=== PATIENT | female | born 1985 | race Caucasian/White ===

== ENCOUNTER 2017-09-02 20:28 | Inpatient (IN) ==
[2017-09-02] MEDS ORDERED: STADOL IV PRN ×2 (20:36)
[2017-09-02] MEDS ORDERED: ZOFRAN IV PRN (20:36)
[2017-09-02] MEDS ORDERED: BRETHINE SUBQ PRN (20:36)
[2017-09-02] MEDS ORDERED: PEPCID IV PRN (20:36)
[2017-09-02] MEDS ORDERED: AMBIEN PO PRN (20:36)
[2017-09-02] MEDS ORDERED: PEPCID PO PRN (20:36)
[2017-09-02] MEDS ORDERED: KEFZOL 1 GM/D5W 1 GM/50 ML IVPB IV PRN (20:36)
[2017-09-02] MEDS ORDERED: LR 1,000 ML IV ONE (20:36)
[2017-09-02] MEDS ORDERED: AMPICILLIN 2 GM/NS 2 GM/100 ML IVPB IV ONE (21:00)
[2017-09-02 21:58] LABS: MANUAL DIFF NEEDED? NO
[2017-09-02 22:03] LABS: BASO% 0.2 % (0.0-0.8); EOS# 0.03 X1000 (0.0-0.7); EOS% 0.3 % (0.0-10.0); HEMATOCRIT 33.3 % (37.0-47.0); HEMOGLOBIN 11.2 g/dL (12.0-16.0); IMM GRAN# 0.03 X1000 (0.0-0.04); IMM GRAN% 0.3 % (0.0-0.5); LYMPH# 2.03 X1000 (1.2-3.4); MCH 28.1 PG (27-31); MCHC 33.6 g/dL (33-37); MCV 83.7 FL (81-99); MONO# 0.84 X1000 (0.11-0.59); MONO% 8.3 % (1.7-9.3); MPV 9.7 FL (7.4-10.4); NEUT% 70.9 % (42.2-75.2); PLT 250 X1000 (130-400); RBC 3.98 XMIL (4.2-5.4)
[2017-09-02] MEDS ORDERED: CYTOTEC PO ONE (23:00)
[2017-09-02] MEDS: TYLENOL PO PRN (23:08)
[2017-09-03] MEDS: STADOL IV PRN ×3 (00:59→06:03)
[2017-09-03] MEDS: AMPICILLIN 1 GM/NS 1 GM/50 ML IVPB IV SCH ×4 (01:03→13:10)
[2017-09-03 02:26] LABS: URINE SOURCE VOIDED
[2017-09-03 02:27] LABS: UR AMPHETAMINES QUAL NONE DETECTED (NONE DETECT); UR BARBITUATES QUAL NONE DETECTED (NONE DETECT); UR BENZODIAZEPIN QUAL NONE DETECTED (NONE DETECT); UR CANNABINOIDS QUAL NONE DETECTED (NONE DETECT); UR COCAINE QUAL NONE DETECTED (NONE DETECT); UR MDMA QUAL NONE DETECTED (NONE DETECT); UR METHADONE QUAL NONE DETECTED (NONE DETECT); UR METHAMPHETAMINE QUAL NONE DETECTED (NONE DETECT); UR OPIATES QUAL NONE DETECTED (NONE DETECT); UR OXYCODONE QUAL NONE DETECTED (NONE DETECT); UR PCP QUAL NONE DETECTED (NONE DETECT); UR TCA QUAL NONE DETECTED (NONE DETECT)
[2017-09-03 02:32] LABS: BILIRUBIN URINE NEGATIVE (NEGATIVE); BLOOD URINE NEGATIVE (NEGATIVE); CLARITY SL. CLOUDY (CLEAR); COLOR ORANGE; GLUCOSE URINE NEGATIVE (NEGATIVE); LEUKOCYTES URINE 2+ (NEGATIVE); NITRITE URINE NEGATIVE (NEGATIVE); PROTEIN URINE TRACE mg/dL (NEGATIVE); SP GRAVITY URINE 1.025; UROBILINOGEN URINE NORMAL
[2017-09-03] MEDS: CYTOTEC PO SCH ×2 (03:37→10:05)
[2017-09-03] MEDS ORDERED: PITOCIN 30 UNITS/LR 30 UNITS/500 ML IV.SOLN IV SCH (07:00)
[2017-09-03] MEDS ORDERED: XYLOCAINE-MPF 1% INJ ONE (07:11)
[2017-09-03] MEDS ORDERED: MINERAL OIL TOP ONE (07:11)
[2017-09-03] MEDS: LR 1,000 ML IV SCH ×2 (08:05→10:47)
[2017-09-03] MEDS ORDERED: FENTANYL IV ONE (08:30)
[2017-09-03] MEDS ORDERED: NAROPIN 0.2% INJ ONE (08:30)
[2017-09-03] MEDS ORDERED: FENTANYL-BUPIV-NS 2 MCG-0.1% 200 ML EPIDURAL SCH (09:00)
[2017-09-03] MEDS: TYLENOL PO PRN (12:42)
[2017-09-03] MEDS ORDERED: PITOCIN 20 UNITS/LR 20 UNITS/1,000 ML IV.SOLN IV SCH (14:46)
[2017-09-03] MEDS ORDERED: BENADRYL PO PRN (14:46)
[2017-09-03] MEDS ORDERED: BOOSTRIX VACCINE IM ONE (14:46)
[2017-09-03] MEDS ORDERED: HYDROXYZINE PO PRN (14:46)
[2017-09-03] MEDS ORDERED: PITOCIN IM PRN (14:46)
[2017-09-03] MEDS ORDERED: PERI MEDS (DERMOPLAST/NUPERCAINAL/TUCKS) MISC PRN (14:46)
[2017-09-03] MEDS ORDERED: M-M-R II VACCINE SUBQ ONE (14:46)
[2017-09-03] MEDS ORDERED: MINERAL OIL PO PRN (14:46)
[2017-09-03] MEDS ORDERED: BENADRYL IV PRN (14:46)
[2017-09-03] MEDS ORDERED: AMBIEN PO PRN (14:46)
[2017-09-03] MEDS ORDERED: PITOCIN 30 UNITS/LR 30 UNITS/500 ML IV.SOLN IV ONE (14:46)
[2017-09-03] MEDS ORDERED: HYDROXYZINE IM PRN (14:46)
[2017-09-03] MEDS ORDERED: CYTOTEC PO PRN (14:46)
[2017-09-03] MEDS ORDERED: NORCO-5 PO PRN (14:46)
[2017-09-03] MEDS ORDERED: XYLOCAINE-MPF 1% INJ PRN (14:46)
--- NOTE | 2017-09-03 18:49 | OPERATIVE NOTE ---
PROCEDURE DATE : 09/03/2017 The patient underwent sterile controlled spontaneous vaginal delivery of a viable male infant weighing 8 pounds 13 ounces. No nuchal. No dystocia. Cord doubly clamped and cut. handed off to the waiting pediatric staff. Placenta delivered spontaneously and intact. Uterus firm with Pitocin and massage. Uterus, cervix and vagina explored. No laceration noted. The patient tolerated the procedure well. She was transferred to recovery in stable condition. cc: Yamilka Garcia MD
[2017-09-04] MEDS: MOTRIN PO PRN ×4 (00:01→21:41)
[2017-09-04] MEDS: NORCO-10 PO PRN ×7 (00:01→21:41)
[2017-09-04] MEDS: PERICOLACE PO SCH ×2 (00:16→21:41)
[2017-09-04 06:03] LABS: HEMATOCRIT 32.3 % (37.0-47.0); HEMOGLOBIN 10.6 g/dL (12.0-16.0); MCHC 32.8 g/dL (33-37); MCV 85.2 FL (81-99); MPV 9.8 FL (7.4-10.4); RBC 3.79 XMIL (4.2-5.4)
[2017-09-05] MEDS: NORCO-10 PO PRN ×3 (03:39→12:40)
[2017-09-05] MEDS: MOTRIN PO PRN (07:49)
[2017-09-05 09:11] VITALS: BP 130/76
== END 2017-09-05 13:25 | disposition home or self-care (01) ==
LOC: P.LD 20:28
PROVIDERS: ADMIT Obstetrics & Gynecology; ATTEND Obstetrics & Gynecology